=== PATIENT | male | born 1970 | race African-American/Black ===

== ENCOUNTER 2021-04-11 07:55 | Inpatient (IN) ==
[2021-04-11] MEDS ORDERED: CLEOCIN 600 MG IV PREMIX 600 MG/50 ML BAG IV ONE ×2 (08:45→08:54)
--- NOTE | 2021-04-11 08:50 | DR.EXTPAIN ---
HPI Time seen Time Seen by Provider: 04/11/21 08:45 PCP Primary Care Physician: Augustine HPI Comment HPI Comment: PATIENT IS 50YR OLD MALE IN ER WOTH SWELLING AND PAIN LEFT FOREARM TIMES 2 WEEKS. PATIENT HAVE HISTORY OF DM AND HYPERTENSION. DENIES FEVER. [facility] AND WAS GIVEN IM SHOT AND PO ANTIBIOTICS. NOT IMPROVING. Complaint/Symptoms Chief Complaint Doctor Comments: SWELLING AND PAIN LEFT FOREARM TIMES 2 WEEKS. Chief Complaint:: Pt has L elbow swelling x2 weeks, has had bloodwork and XR done, thinks he has either gout or cellulitis. COVID-19 Coronavirus risk:travel/contact w/high risk person: No Has patient experienced Coronavirus symptoms: No Nurses notes reviewed Nurses Notes Review: Yes Source History Provided: Patient Mode of arrival Mode of Arrival: Ambulatory Timing Onset of Chief Complaint: 03/28/21 Context History of: None Associated signs and symptoms Associated Signs and Symptoms: Pain and Swelling PMH PMH Past Medical History: Yes Past Medical History: Diabetes and Hypertension Past Surgical History: No Family History History of Family Medical Conditions: Yes Family Medical History: Diabetes Mellitus and Hypertension Social History Alcohol Use: None Do you use any recreational Drugs:: No Lives Where: Home Travel Risk Coronavirus risk:travel/contact w/high risk person: No Has patient experienced Coronavirus symptoms: No Infectious screening In the last 2 months have you had wt loss of >10#?: NO Have you had fever, night sweats or hemotysis?: No Have you traveled outside the country in the last 6 months?: No Isolation: Standard ROS Review of Systems Constitutional: No Symptoms Reported and See HPI; negative Fever, Weakness and Fatigue Eyes: No Symptoms Reported and See HPI ENTM: No Symptoms Reported and See HPI; negative Nose Discharge and Nose Congestion Respiratoy: No Symptoms Reported and See HPI; negative Moist Cough, Short of Breath and Wheezing Cardiovascular: No Symptoms Reported and See HPI; negative Chest Pain Gastrointestinal/Abdominal: No Symptoms Reported and See HPI; negative Abdominal Pain, Diarrhea and Vomiting Genitourinary: No Symptoms Reported and See HPI; negative Dysuria, Frequency and Hematuria Neurological: No Symptoms Reported; negative Headache, Weakness and Dizziness Musculoskeletal: No Symptoms Reported and See HPI; negative Back Pain and Muscle Pain Integumentary: No Symptoms Reported, See HPI, Change in Color and Rash; negative Juandice Hematologic/Lymphatic: No Symptoms Reported and See HPI; negative Easy Bruising Endocrine: No Symptoms Reported and See HPI; negative Increased Thirst and Increased Urine Psychiatric: No Symptoms Reported and See HPI All Other Systems: Reviewed and Negative PE Vital Signs Vitals: Temperature 98.4 F Pulse Rate 107 Respiratory Rate 16 Blood Pressure 192/95 O2 Sat by Pulse Oximetry 98 General Limitations: No Limitations General Appearance: Alert and In No Apparent Distress Head Head Exam: Normal Inspection Eyes Eye exam: Normal Appearance; negative Scleral Icterus and Conjunctival Injection ENT ENT Exam: Normal Exam, Normal Oropharynx, Normal External Ear Exam and TM's Normal Bilaterally Neck Neck Exam: Normal Inspection and Trachea Midline; negative Tenderness and Lymphadenopathy Chest Chest Inspection: Normal Inspection and Symmetric Chest Wall Rise; negative Tenderness Respiratory Respiratory Exam: Normal Lung Sounds Bilat; negative Accessory Muscle Use, Chest Wall Tenderness and Respiratory Distress Cardiovascular Cardiovascular Exam: Regular Rate, Normal Rhythm and Normal Heart Sounds; negative Systolic Murmur and Diastolic Murmur Abdominal Exam Abdominal Exam: Normal Inspection, Normal Bowel Sounds and Soft; negative Tenderness Extremities Extremities Exam: Tenderness (SWELLING AND TENDERNESS LEFT FOREARM. ), Normal Capillary Refill and Other (PULSES INTACT.) Back Back Exam: Normal Inspection; negative (R) CVA Tenderness and (L) CVA Tenderness Neurological Neurological Exam: Alert, Oriented X3 and CN II-XII Intact; negative Motor Sensory Deficit Psychiatric Psychiatric Exam: Normal Affect and Normal Mood Skin Skin Exam: Warm, Dry, Intact and Normal Color MDM Differential Diagnosis Differential Diagnosis: Other (CELLULITIS LEFT FOREARM, ABSCESS LEFT FOREARM, DM.) COURSE Treatment Treatment: SEE ORDERS. NS 125CC/HR, CLINDAMYSIN 600MG IV AND VANCOMYSIN 1GM IVPB IN ER. Education/Counseling Education/Counseling: Patient Educated On: Diagnosis ROR Labs Reviewed Laboratory Results Reviewed?: Yes Result Diagrams: 04/11/21 09:00 04/11/21 09:00 Laboratory: WBC 15.1 X10^3/uL (3.6-10.0) H 04/11/21 09:00 RBC 4.76 X10^6/uL (4.7-6.0) 04/11/21 09:00 Hgb 13.4 g/dL (13.5-18.0) L 04/11/21 09:00 Hct 39.9 % (42.0-54.0) L 04/11/21 09:00 MCV 83.8 fL (80.0-100.0) 04/11/21 09:00 MCH 28.0 pg (27.0-34.0) 04/11/21 09:00 MCHC 33.4 g/dL (33.0-35.0) 04/11/21 09:00 RDW 12.8 % (11.6-16.5) 04/11/21 09:00 Plt Count 440 X10^3/uL (150.0-450.0) 04/11/21 09:00 MPV 7.8 fL (7.4-11.0) 04/11/21 09:00 Neut % (Auto) 77.7 % (42.0-75.0) H 04/11/21 09:00 Lymph % (Auto) 13.8 % (21.0-51.0) L 04/11/21 09:00 Christian % (Auto) 7.8 % (0.0-13.0) 04/11/21 09:00 Eos % (Auto) 0.2 % (0.9-2.9) L 04/11/21 09:00 Baso % (Auto) 0.5 % (0.2-1.0) 04/11/21 09:00 Neut # (Auto) 11.8 x10^3/uL (2.2-4.8) H 04/11/21 09:00 Lymph # (Auto) 2.1 X10^3/uL (1.3-2.9) 04/11/21 09:00 Christian # (Auto) 1.2 x10^3/uL (0.3-0.8) H 04/11/21 09:00 Eos # (Auto) 0.0 x10^3/uL (0.0-0.2) 04/11/21 09:00 Baso # (Auto) 0.1 X10^3/uL (0.0-0.1) 04/11/21 09:00 Absolute Nucleated RBC 0.1 /100WBC 04/11/21 09:00 Sodium 136 mmol/L (136-145) 04/11/21 09:00 Corrected Sodium 141 mmol/L (136-145) 04/11/21 09:00 Potassium 4.0 mmol/L (3.5-5.1) 04/11/21 09:00 Chloride 97 mmol/L (98-107) L 04/11/21 09:00 Carbon Dioxide 32.8 mmol/L (21-32) H 04/11/21 09:00 BUN 10 mg/dL (7-18) 04/11/21 09:00 Creatinine 0.78 mg/dL (0.70-1.30) 04/11/21 09:00 Est GFR (MDRD) Af Amer > 60 (>60) 04/11/21 09:00 Est GFR (MDRD) Non-Af > 60 (>60) 04/11/21 09:00 Glucose 291 mg/dL (65-99) H 04/11/21 09:00 POC Glucose (mg/dL) 305 mg/dL (65-99) H 04/11/21 09:07 Calcium 9.5 mg/dL (8.5-10.1) 04/11/21 09:00 Corrected Calcium 10.6 mg/dL (8.5-10.1) H 04/11/21 09:00 Total Bilirubin 0.30 mg/dL (0.2-1.0) 04/11/21 09:00 AST 17 Units/L (15-37) 04/11/21 09:00 ALT 19 Units/L (12-78) 04/11/21 09:00 Alkaline Phosphatase 190 Units/L (46-116) H 04/11/21 09:00 Total Protein 8.5 g/dL (6.4-8.2) H 04/11/21 09:00 Albumin 2.6 g/dL (3.4-5.0) L 04/11/21 09:00 Globulin 5.9 g/dL (2.5-4.5) H 04/11/21 09:00 Albumin/Globulin Ratio 0.4 Ratio (1.1-2.1) L 04/11/21 09:00 Opioid Opioid Risk Tool Age (Rizwan box if 16-45): No Total: 0 Total Score Risk Category: Low Risk Copyright: Joaquín DEMPSEY predicting aberrant behaviors Diagnosis Discharge Problem: Cellulitis of forearm, left, Abscess of forearm, left Instructions Forms: Precautions for COVID19 [facility] Social Distancing
[2021-04-11] MEDS ORDERED: NS 1,000 ML IV 1,000 ML ONE (08:54)
[2021-04-11 09:20] LABS: BASOPHILS # (AUTO) 0.1 X10^3/uL (0.0-0.1); BASOPHILS % (AUTO) 0.5 % (0.2-1.0); EOSINOPHILS % (AUTO) 0.2 % (0.9-2.9); HEMATOCRIT 39.9 % (42.0-54.0); HEMOGLOBIN 13.4 g/dL (13.5-18.0); LYMPHOCYTES # (AUTO) 2.1 X10^3/uL (1.3-2.9); LYMPHOCYTES % (AUTO) 13.8 % (21.0-51.0); MEAN CORPUSCULAR HGB CONC 33.4 g/dL (33.0-35.0); MEAN CORPUSCULAR VOLUME 83.8 fL (80.0-100.0); MEAN PLATELET VOLUME 7.8 fL (7.4-11.0); MONOCYTES # (AUTO) 1.2 x10^3/uL (0.3-0.8); MONOCYTES % (AUTO) 7.8 % (0.0-13.0); NEUTROPHILS # (AUTO) 11.8 x10^3/uL (2.2-4.8); NEUTROPHILS % (AUTO) 77.7 % (42.0-75.0); PLATELET COUNT 440 X10^3/uL (150.0-450.0); RED BLOOD COUNT 4.76 X10^6/uL (4.7-6.0); RED CELL DISTRIBUTION WIDTH 12.8 % (11.6-16.5); WHITE BLOOD COUNT 15.1 X10^3/uL (3.6-10.0)
[2021-04-11] MEDS: NS 1,000 ML IV 1,000 ML IV SCH ×3 (09:20→20:44)
[2021-04-11 09:26] LABS: ALANINE AMINOTRANSFERASE 19 Units/L (12-78); ALBUMIN 2.6 g/dL (3.4-5.0); ALKALINE PHOSPHATASE 190 Units/L (46-116); ASPARTATE AMINO TRANSFERASE 17 Units/L (15-37); BLOOD UREA NITROGEN 10 mg/dL (7-18); CALCIUM 9.5 mg/dL (8.5-10.1); CARBON DIOXIDE 32.8 mmol/L (21-32); CHLORIDE 97 mmol/L (98-107); COR CA(FOR HYPOALB) 10.6 mg/dL (8.5-10.1); COR NA(FOR HYPERGLY) 141 mmol/L (136-145); CREATININE 0.78 mg/dL (0.70-1.30); SODIUM 136 mmol/L (136-145); TOTAL PROTEIN 8.5 g/dL (6.4-8.2); eGFR NON BLACK RACES > 60 (>60)
[2021-04-11] MEDS ORDERED: VANCOMYCIN IV *PREMIX 1 G/200 ML BAG 1 G/200 ML PIGGYBACK IV ONE ×2 (10:51→11:01)
[2021-04-11] MEDS ORDERED: PHARMACY CONSULT - VANCOMYCIN XX SCH (11:00)
[2021-04-11] MEDS ORDERED: NS 100 ML IV 100 ML ONE (11:04)
[2021-04-11] MEDS ORDERED: MOTRIN TAB 600 MG PO PRN (12:26)
[2021-04-11] MEDS ORDERED: TORADOL 15 MG VIAL IVP PRN (12:26)
[2021-04-11] MEDS ORDERED: ZOFRAN TAB 4 MG PO PRN (12:26)
--- NOTE | 2021-04-11 13:01 | CT ---
HISTORYpt states left arm pain and swelling elbow down toward hand.brdr wants to r/o abscess vs cellulitis.brSTUDYLEFT UPPER EXT WITH CONCOMPARISONLeft forearm series dated April 08, 2021.TECHNIQUEMultiple axial images of the left upper extremity after the administration of IV contrast. Dose reduction techniques including Automated Exposure Control (AEC) and adjustment of mA and kV were utilized.Study is limited secondary to technique with large field of view.FINDINGSPosterior to the left distal humerus/olecranon and extending into the distal left forearm to the level of the mid ulna there is a rim enhancing fluid collection most likely representing an abscess. This appears to measure 5.7 x 1.9 x 13.1 cm in greatest dimension given limitations of the exam. Surrounding soft tissue edema and stranding. No obvious involvement of the elbow joint. No obvious periosteal reaction to suggest osteomyelitis. The osseous structures otherwise appear intact. Likely reactive lymphadenopathy within the left axilla. Otherwise, remaining soft tissue structures appear normal.IMPRESSIONLarge abscess within the left upper extremity as above. No obvious joint involvement or periosteal reaction to suggest osteomyelitis. However, this is not entirely excluded. Recommend emergent Orthopedic surgery consultation.Electronically signed by: JANNIA LR (Apr 11, 2021 12:58:41)
[2021-04-11 13:12] VITALS: BMI 21.9
[2021-04-11] MEDS ORDERED: ZESTRIL TAB 20 MG ONE (13:27)
[2021-04-11] MEDS: ZESTRIL TAB 20 MG PO SCH (13:35)
[2021-04-11] MEDS: HumuLIN R SUBCUT PRN (16:19)
[2021-04-11] MEDS: DILAUDID INJ IVP PRN ×2 (16:20→20:49)
[2021-04-11] MEDS: VANCOMYCIN IV *PREMIX 1 G/200 ML BAG 1 G/200 ML PIGGYBACK IV SCH (18:27)
[2021-04-11] MEDS ORDERED: SNACK - Diabetic Appropriate PO SCH (20:00)
[2021-04-11] MEDS: LOVENOX INJ 40 MG SYR SC SCH (20:47)
[2021-04-11] MEDS: LANTUS SC SCH (20:48)
[2021-04-12] MEDS: DILAUDID INJ IVP PRN ×4 (01:24→15:05)
[2021-04-12] MEDS: VANCOMYCIN IV *PREMIX 1 G/200 ML BAG 1 G/200 ML PIGGYBACK IV SCH ×3 (01:24→20:02)
[2021-04-12] MEDS: NS 1,000 ML IV 1,000 ML IV SCH ×4 (01:28→17:26)
[2021-04-12 06:11] LABS: BASOPHILS # (AUTO) 0.1 X10^3/uL (0.0-0.1); BASOPHILS % (AUTO) 0.7 % (0.2-1.0); EOSINOPHILS # (AUTO) 0.1 x10^3/uL (0.0-0.2); EOSINOPHILS % (AUTO) 0.5 % (0.9-2.9); LYMPHOCYTES # (AUTO) 2.4 X10^3/uL (1.3-2.9); LYMPHOCYTES % (AUTO) 16.2 % (21.0-51.0); MEAN CORPUSCULAR HEMOGLOBIN 27.9 pg (27.0-34.0); MEAN CORPUSCULAR HGB CONC 33.3 g/dL (33.0-35.0); MEAN CORPUSCULAR VOLUME 83.9 fL (80.0-100.0); MEAN PLATELET VOLUME 7.9 fL (7.4-11.0); MONOCYTES # (AUTO) 1.4 x10^3/uL (0.3-0.8); MONOCYTES % (AUTO) 9.5 % (0.0-13.0); NEUTROPHILS # (AUTO) 10.6 x10^3/uL (2.2-4.8); NEUTROPHILS % (AUTO) 73.1 % (42.0-75.0); PLATELET COUNT 394 X10^3/uL (150.0-450.0); RED BLOOD COUNT 4.29 X10^6/uL (4.7-6.0); RED CELL DISTRIBUTION WIDTH 12.9 % (11.6-16.5); WHITE BLOOD COUNT 14.5 X10^3/uL (3.6-10.0)
[2021-04-12 06:25] LABS: ALANINE AMINOTRANSFERASE 13 Units/L (12-78); ALKALINE PHOSPHATASE 138 Units/L (46-116); ASPARTATE AMINO TRANSFERASE 16 Units/L (15-37); BLOOD UREA NITROGEN 9 mg/dL (7-18); CALCIUM 8.5 mg/dL (8.5-10.1); CARBON DIOXIDE 27.4 mmol/L (21-32); CHLORIDE 100 mmol/L (98-107); COR CA(FOR HYPOALB) 10.1 mg/dL (8.5-10.1); COR NA(FOR HYPERGLY) 136 mmol/L (136-145); CREATININE 0.65 mg/dL (0.70-1.30); SODIUM 135 mmol/L (136-145); TOTAL PROTEIN 6.8 g/dL (6.4-8.2); eGFR NON BLACK RACES > 60 (>60)
[2021-04-12] MEDS ORDERED: ZESTRIL TAB 20 MG ONE (08:16)
[2021-04-12] MEDS: ACTOS PO SCH (08:27)
[2021-04-12] MEDS: LOVENOX INJ 40 MG SYR SC SCH (08:27)
[2021-04-12] MEDS: ZESTRIL TAB 20 MG PO SCH (08:29)
[2021-04-12] MEDS: VSL#3 PO SCH (08:29)
[2021-04-12] MEDS ORDERED: ZESTRIL TAB 20 MG PO ONE (08:47)
[2021-04-12] MEDS: GLUCOPHAGE XR 24-HR PO SCH ×3 (08:57→20:14)
[2021-04-12] MEDS ORDERED: ZESTRIL TAB 20 MG PO SCH (09:00)
[2021-04-12 09:13] LABS: CREATININE 0.67 mg/dL (0.70-1.30); VANCOMYCIN,TROUGH 9.8 ug/mL (15-20)
[2021-04-12] MEDS: D5W IV SCH ×3 (09:32→20:37)
[2021-04-12] MEDS: BACTRIM IV SCH ×3 (09:32→20:37)
--- NOTE | 2021-04-12 10:02 | RAD ---
HISTORYPRE OP CLEARANCE, LT ARM ABCESSSTUDYCHEST x-ray, 1 VIEWCOMPARISONNoneFINDINGSThe trachea is midline. The cardiac silhouette is unremarkable .Lungs appear clear. No pneumothorax or pleural effusion is seen.No acute bony abnormality is seen.IMPRESSIONNo acute cardiopulmonary abnormality is seen.Electronically signed by: Valdo Grey (Apr 12, 2021 10:00:16)
[2021-04-12] MEDS: NORVASC TAB 10 MG PO SCH (10:55)
--- NOTE | 2021-04-12 11:03 | DR.CONSULT ---
CONSULT Consultation for Day of: Date: 04/12/21 Chief Complaint Chief Complaint: Swelling and redness left proximal forearm. Allergies Allergies Allergy/AdvReac Type Severity Reaction Status Date / Time No Known Drug Allergies Allergy Verified 04/11/21 07:57 History of Present Illness History of Present Illness: 50 year old male with history of diabetes and 2 week history of increasing swelling of the left proximal forearm. Presented to the emergency room on and plain films were negative. Presented again with increasing swelling and CT scan of the left arm and consistent with abscess of the left proximal forearm over the proximal ulna. Admitted and placed on IV antibiotics. Past Medical History Past Medical History: Diabetes and Hypertension Past Surgical History Surgical History: Abdominal Surgery Additional Surgical History: Umbilical hernia repair as a child Family History Family Medical History: Diabetes Mellitus and Hypertension Social History Does patient currently use any type of tobacco product: No Have you used tobacco products in the last 12 months: No Type of Tobacco Use: None Does any household member use tobacco: Yes Alcohol Use: None Drug Use: Marijuana Medications Home Medications: No Known Drug Allergies Allergy (Verified 04/11/21 07:57) CONTINUE taking the following medications doxycycline monohydrate 100 mg PO BID 04/11/21 [History] insulin glargine [Lantus Solostar U-100 Insulin] 10 unit SUBCUT QHS 04/11/21 [History] insulin lispro [Humalog U-100 Insulin] 1 sliding scale dose SUBCUT USEASDIRECTD 04/11/21 [History] lisinopril 20 mg PO DAILY 04/11/21 [History] Review of Systems Constitutional: Other (pain of left proximal forearm. Denies recent trauma.); denies No Symptoms Reported, See HPI, Fever, Chills, Sweats, Weakness and Malaise Eyes: No Symptoms Reported ENT: No Symptoms Reported Respiratory: No Symptoms Reported Cardiovascular: No Symptoms Reported Gastrointestinal: No Symptoms Reported Genitourinary: No Symptoms Reported Musculoskeletal: Arm Pain (as described above) Skin: Other (increasing redness left proximal forearm) Neurological: No Symptoms Reported Physical Exam Vital Signs: Temperature 98.6 F WBC= 14.5 CT left arm- abcess left forearm Pulse Rate [Left Radial] 82 Pulse Rate 107 Respiratory Rate 20 Blood Pressure [Right Arm] 162/88 Blood Pressure 192/95 O2 Sat by Pulse Oximetry 96 Oriented: Normal Eyes: Normal Ear: Normal Nose: Normal Throat: Normal Respiratory: Clear Throughout Cardiovascular: Normal : Normal Auscultation: Bowel Sounds: Normal Palpation: Normal Skin: Red (left proximal forearm with fluctuance over the left proximal ulna) Musculoskeletal: Normal (except for above) Psychiatric: Normal Mood Description: Calm Speech Pattern: Clear Plan (1) Abscess of forearm, left: Status: Acute Plan: Continue IV antibiotics. To OR later today to incise, drain , and pack the abscess cavity. (2) Cellulitis of forearm, left: Status: Acute (3) Diabetes 1.5, managed as type 2: Status: Acute
[2021-04-12] MEDS: HumuLIN R SUBCUT PRN (11:51)
[2021-04-12] MEDS ORDERED: PEPCID 20 MG IV PREMIX* 20 MG/50 ML BAG IV ONE (12:13)
[2021-04-12] MEDS ORDERED: REGLAN INJ 10 MG VIAL IVP ONE (12:14)
[2021-04-12] MEDS ORDERED: FENTANYL VIAL INJ 100 mcg ONE (12:37)
[2021-04-12] MEDS ORDERED: XYLOCAINE-MPF 0.5% IJ ONE (12:49)
[2021-04-12] MEDS ORDERED: BETADINE SOLN ONE (12:50)
[2021-04-12] MEDS ORDERED: MARCAINE 0.5% ONE (12:52)
[2021-04-12] MEDS ORDERED: XYLOCAINE 2 % (PLAIN) ONE (13:04)
[2021-04-12] MEDS ORDERED: VERSED ONE (13:04)
[2021-04-12] MEDS ORDERED: KETALAR ONE (13:04)
[2021-04-12] MEDS ORDERED: DIPRIVAN VIAL ONE (13:04)
--- NOTE | 2021-04-12 13:51 | OR.IMMED ---
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 Specimens Removed: plaque Estimated Blood Loss: 100cc Drains: NONE Complications: none Discharge Progress Notes: Patient to receive several hours IV hydration. At the end of that time we will evaluate and discharge him home if appropriate .He will be on his usual medications and restart all of them including Plavix and Eliquis . follow up Dr. Saldivar in one week . Condition: Stable Final Diagnosis: as above
--- NOTE | 2021-04-12 14:20 | OR.IMMED ---
IMMEDIATE POST-OP NOTE Immediate Post-Op Note Pre-Op Diagnosis: Abscess to left proximal forearm extending to the olecranon an d distally over the mid ulna Post-Op Diagnosis: same Procedure: incision and drainage of abscess left proximal forearm, dorsal surface Description of Procedure: see operative summary Surgeon/Jig And Fixture Builder Apprentice: Janna Findings: large abscess [id number] cm left proximal dorsal forearm Specimens Removed: cultures of abscess Estimated Blood Loss: minimal Drains: NONE Complications: none Progress Notes: Wound packed with Kelix and dressed. return to floor, continue IV antibiotics, pack wound daily, may benefit from wound vacuum, await culture results . Condition: Stable Final Diagnosis: abscess left forearm.
[2021-04-12] MEDS ORDERED: ZOFRAN INJ 4 MG VIAL IVP PRN (14:22)
[2021-04-12] MEDS ORDERED: PHARMACY COMMENT IV NR (17:30)
[2021-04-12 19:42] LABS: CREATININE 0.74 mg/dL (0.70-1.30); VANCOMYCIN,TROUGH 9.4 ug/mL (15-20)
[2021-04-12] MEDS: PERCOCET TAB 5/325 MG PO PRN (20:11)
[2021-04-12] MEDS: LANTUS SC SCH (20:14)
[2021-04-13] MEDS: PERCOCET TAB 5/325 MG PO PRN ×4 (00:18→20:05)
[2021-04-13] MEDS: CATAPRES TAB 0.1 MG PO PRN ×2 (00:28→20:39)
[2021-04-13] MEDS: VANCOMYCIN IV *PREMIX 1 G/200 ML BAG 1 G/200 ML PIGGYBACK IV SCH (02:00)
[2021-04-13] MEDS: NS 1,000 ML IV 1,000 ML IV SCH ×3 (02:00→20:04)
[2021-04-13 05:45] LABS: BASOPHILS % (AUTO) 0.2 % (0.2-1.0); EOSINOPHILS % (AUTO) 0.4 % (0.9-2.9); HEMATOCRIT 36.7 % (42.0-54.0); HEMOGLOBIN 12.3 g/dL (13.5-18.0); LYMPHOCYTES # (AUTO) 2.3 X10^3/uL (1.3-2.9); MEAN CORPUSCULAR HEMOGLOBIN 27.9 pg (27.0-34.0); MEAN CORPUSCULAR HGB CONC 33.5 g/dL (33.0-35.0); MEAN CORPUSCULAR VOLUME 83.1 fL (80.0-100.0); MEAN PLATELET VOLUME 7.9 fL (7.4-11.0); MONOCYTES # (AUTO) 1.2 x10^3/uL (0.3-0.8); MONOCYTES % (AUTO) 10.5 % (0.0-13.0); NEUTROPHILS % (AUTO) 68.9 % (42.0-75.0); PLATELET COUNT 437 X10^3/uL (150.0-450.0); RED BLOOD COUNT 4.41 X10^6/uL (4.7-6.0); RED CELL DISTRIBUTION WIDTH 13.1 % (11.6-16.5); WHITE BLOOD COUNT 11.6 X10^3/uL (3.6-10.0)
[2021-04-13 05:59] LABS: ALANINE AMINOTRANSFERASE 12 Units/L (12-78); ALKALINE PHOSPHATASE 148 Units/L (46-116); ASPARTATE AMINO TRANSFERASE 18 Units/L (15-37); BLOOD UREA NITROGEN 7 mg/dL (7-18); CALCIUM 8.4 mg/dL (8.5-10.1); CARBON DIOXIDE 28.6 mmol/L (21-32); CHLORIDE 100 mmol/L (98-107); COR NA(FOR HYPERGLY) 137 mmol/L (136-145); CREATININE 0.76 mg/dL (0.70-1.30); SODIUM 134 mmol/L (136-145); TOTAL PROTEIN 7.1 g/dL (6.4-8.2); eGFR NON BLACK RACES > 60 (>60)
[2021-04-13] MEDS: HumuLIN R SUBCUT PRN ×3 (06:03→20:39)
[2021-04-13] MEDS ORDERED: ZESTRIL TAB 20 MG ONE (09:25)
[2021-04-13] MEDS: VANCOMYCIN IV *PREMIX 1.25 G/250 ML BAG 1.25 G/250 ML PIGGYBACK IV SCH ×3 (09:28→21:02)
[2021-04-13] MEDS: ACTOS PO SCH (09:28)
[2021-04-13] MEDS: NORVASC TAB 10 MG PO SCH (09:32)
[2021-04-13] MEDS: ZESTRIL TAB 20 MG PO SCH (09:34)
[2021-04-13] MEDS: VSL#3 PO SCH (09:38)
[2021-04-13] MEDS: LOVENOX INJ 40 MG SYR SC SCH (09:48)
[2021-04-13] MEDS: BACTRIM IV SCH ×2 (10:00→20:05)
[2021-04-13] MEDS: GLUCOPHAGE PO SCH ×2 (10:00→20:04)
[2021-04-13] MEDS: D5W IV SCH ×2 (10:00→20:05)
[2021-04-13] MEDS: INVOKANA PO SCH (13:10)
[2021-04-13] MEDS: TOPROL XL PO SCH (14:00)
--- NOTE | 2021-04-13 14:26 | NOTE.SOAP ---
Soap Note Note for Day of Date of Exam: 04/13/21 Subjective Data Subjective Data: Postoperative day one after incision and drainage of left proximal forearm abscess with packing of wound. Objective Data Temperature: 98.4 F Pulse Rate: 92 Respiratory Rate: 18 Blood Pressure: 184/93 O2 Sat by Pulse Oximetry: 99 Objective Data: Dressing intact left arm. No significant drainage on to the dressing. Assessment Assessment: Abscess left proximal forearm Plan Plan: Continue V antibiotics. I will change the dressing this afternoon. He will need to have his family instructed on how to pack the wound and care for it at the time of discharge.
[2021-04-13] MEDS ORDERED: TOPROL XL PO ONE (16:42)
--- NOTE | 2021-04-13 19:16 | DR.OPNOTE ---
OP NOTE Pre-Op Diagnosis: Abscess proximal dorsal left forearm Post-Op Diagnosis: same Procedure Date Date Of Procedure: 04/12/21 Procedure: Incision and drainage abscess left proximal dorsal forearm NARRATIVE : The patient was taken to the operating Suite, placed in the Supine position and the entire left arm prepped and draped in sterile fashion. Time out for the procedure obtained. Once this was done a vertical incision was started on the d orsal aspect of the proximal forearm along the same longitude as the ulna and gross pus evacuated. Cultures obtained. Incision extended with electrocautery. All pus irrigated free. Hemostasis obtained with electrocautery . Wound measured 20 x 15 x 5 cm. No exposed bone was noted. The wound was packed with kerlix gauze and then wrapped with more kerlix and a 6-inch Luis Alberto Wrap. The patient was taken to the recovery room in good condition. Type of Anesthesia: Local Anesthesia Comment: MAC Findings: 20 by 15 by 5 cm abscess to the dorsal left proximal forearm also involving the olecranon area Specimen/Pathology: cultures of abscess Type of Fluids Used:: Lactated Ringers EBL: < 10 cc Drains/Tubes Placed: None Cultures: yes, aerobic and anereobic Complications:: none Needle/Sponge Count:: correct Disposition/Condition: Pt. tolerated procedure without difficulty. Taken to PACU in stable condition.
[2021-04-13] MEDS: DILAUDID INJ IVP PRN (21:18)
[2021-04-14] MEDS: PERCOCET TAB 5/325 MG PO PRN (00:18)
[2021-04-14] MEDS: NS 1,000 ML IV 1,000 ML IV SCH ×3 (02:41→09:02)
[2021-04-14] MEDS ORDERED: PHARMACY COMMENT IV NR (05:30)
[2021-04-14 05:31] LABS: BASOPHILS # (AUTO) 0.1 X10^3/uL (0.0-0.1); BASOPHILS % (AUTO) 1.2 % (0.2-1.0); EOSINOPHILS # (AUTO) 0.1 x10^3/uL (0.0-0.2); EOSINOPHILS % (AUTO) 0.8 % (0.9-2.9); HEMATOCRIT 38.1 % (42.0-54.0); HEMOGLOBIN 12.6 g/dL (13.5-18.0); LYMPHOCYTES # (AUTO) 2.5 X10^3/uL (1.3-2.9); LYMPHOCYTES % (AUTO) 35.2 % (21.0-51.0); MEAN CORPUSCULAR HEMOGLOBIN 27.7 pg (27.0-34.0); MEAN CORPUSCULAR VOLUME 83.7 fL (80.0-100.0); MEAN PLATELET VOLUME 7.7 fL (7.4-11.0); MONOCYTES # (AUTO) 0.8 x10^3/uL (0.3-0.8); MONOCYTES % (AUTO) 11.6 % (0.0-13.0); NEUTROPHILS # (AUTO) 3.7 x10^3/uL (2.2-4.8); NEUTROPHILS % (AUTO) 51.2 % (42.0-75.0); PLATELET COUNT 477 X10^3/uL (150.0-450.0); RED BLOOD COUNT 4.56 X10^6/uL (4.7-6.0); RED CELL DISTRIBUTION WIDTH 13.1 % (11.6-16.5); WHITE BLOOD COUNT 7.2 X10^3/uL (3.6-10.0)
[2021-04-14 05:47] LABS: ALANINE AMINOTRANSFERASE 15 Units/L (12-78); ALBUMIN 2.1 g/dL (3.4-5.0); ALKALINE PHOSPHATASE 143 Units/L (46-116); ASPARTATE AMINO TRANSFERASE 15 Units/L (15-37); BLOOD UREA NITROGEN 9 mg/dL (7-18); CALCIUM 8.8 mg/dL (8.5-10.1); CHLORIDE 102 mmol/L (98-107); COR CA(FOR HYPOALB) 10.3 mg/dL (8.5-10.1); CREATININE 0.72 mg/dL (0.70-1.30); SODIUM 136 mmol/L (136-145); TOTAL PROTEIN 7.1 g/dL (6.4-8.2); eGFR NON BLACK RACES > 60 (>60)
[2021-04-14 05:52] LABS: VANCOMYCIN,TROUGH 18.8 ug/mL (15-20)
[2021-04-14] MEDS: VANCOMYCIN IV *PREMIX 1.25 G/250 ML BAG 1.25 G/250 ML PIGGYBACK IV SCH (05:58)
[2021-04-14] MEDS ORDERED: ZESTRIL TAB 20 MG ONE (08:09)
[2021-04-14] MEDS ORDERED: TOPROL XL PO ONE (08:09)
[2021-04-14] MEDS: ACTOS PO SCH (08:50)
[2021-04-14] MEDS: TOPROL XL PO SCH (08:50)
[2021-04-14] MEDS: GLUCOPHAGE PO SCH (08:50)
[2021-04-14] MEDS: DILAUDID INJ IVP PRN (08:51)
[2021-04-14] MEDS: LOVENOX INJ 40 MG SYR SC SCH (08:51)
[2021-04-14] MEDS: NORVASC TAB 10 MG PO SCH (08:51)
[2021-04-14] MEDS: ZESTRIL TAB 20 MG PO SCH (08:51)
[2021-04-14] MEDS: VSL#3 PO SCH (08:53)
[2021-04-14] MEDS: INVOKANA PO SCH (09:01)
[2021-04-14] MEDS: D5W IV SCH (09:58)
[2021-04-14] MEDS: BACTRIM IV SCH (09:58)
[2021-04-14 11:38] VITALS: BP 134/89
== END 2021-04-14 12:45 | disposition home or self-care (01) | DRG 603 ==
LOC: ER 07:56 → MED/SURG 12:04
PROVIDERS: ADMIT Obstetrics & Gynecology Obstetrics; ATTEND Obstetrics & Gynecology Obstetrics
DX: Z20.822 Contact with and (suspected) exposure to COVID-19; L02.414 Cutaneous abscess of left upper limb; B95.62 Methicillin resistant Staphylococcus aureus infection as the cause of diseases classified elsewhere; E11.65 Type 2 diabetes mellitus with hyperglycemia; I10 Essential (primary) hypertension; L03.114 Cellulitis of left upper limb